=== PATIENT | male | born 1945 | race Caucasian/White ===

== ENCOUNTER 2020-12-04 10:56 | Emergency (ER) | payer OTHER | END 2020-12-04 11:31 | disposition home or self-care (01) | LOC: BURERS 10:56 | DX: I10 Essential (primary) hypertension (principal) | CPT/HCPCS: 93005 ==

== ENCOUNTER 2021-12-12 11:00 | Outpatient (CLI) | payer MEDICARE | END 2021-12-12 11:01 | disposition home or self-care (01) | LOC: BURRAD 11:00 | PROVIDERS: ATTEND Registered Nurse Community Health | DX: G89.29 Other chronic pain (principal); M41.9 Scoliosis, unspecified; M51.36 Other intervertebral disc degeneration, lumbar region; M47.816 Spondylosis without myelopathy or radiculopathy, lumbar region; M47.817 Spondylosis without myelopathy or radiculopathy, lumbosacral region | CPT/HCPCS: 72100 ==

== ENCOUNTER 2025-04-16 14:24 | Emergency (ER) | payer OTHER ==
[2025-04-16] MEDS ORDERED: predniSONE 20 MG TAB ONE (16:06)
== END 2025-04-16 16:12 | disposition home or self-care (01) ==
LOC: BURERS 14:24
DX: M79.89 Other specified soft tissue disorders (principal); I10 Essential (primary) hypertension; Z79.899 Other long term (current) drug therapy
CPT/HCPCS: 99283; J7512